=== PATIENT | female | born 1990 | race Two or more races ===

== ENCOUNTER 2018-07-15 22:22 | Emergency (ER) | payer OTHER ==
[2018-07-15 22:24] VITALS: BP 117/79
== END 2018-07-15 23:31 | disposition home or self-care (01) ==
LOC: ED 23:05
DX: S83.422A Sprain of lateral collateral ligament of left knee, initial encounter (principal); X58.XXXA Exposure to other specified factors, initial encounter; Y93.44 Activity, trampolining; Y99.8 Other external cause status; Y92.89 Other specified places as the place of occurrence of the external cause
CPT/HCPCS: 99284

== ENCOUNTER 2019-06-22 01:18 | Emergency (ER) | payer OTHER ==
[~2019-06-22] VITALS: Ht 162.6 cm; Wt 74.0 kg
--- NOTE | 2019-06-22 02:33 | NUR ---
PT SLEEPING ON STRETCHER,NAD NOTED. AT BEDSIDE. WILL CONTINUE TO MONITOR.
[2019-06-22 05:50] VITALS: BP 95/60
--- NOTE | 2019-06-22 07:07 | NUR ---
BEDSIDE REPORT RECEIVED FROM STEFANIE BOWIE. PT AND SIGNIFICANT OTHER DENY ANY NEEDS OR CONCERNS AT THIS TIME.
--- NOTE | 2019-06-22 07:29 | NUR ---
PT LIVES IN [facility]. [employer] WILL ONLY TAKE PT HALF WAY, PER [employer]. PT AND MADE AWARE, STATE THEY WILL TRY TO CALL SOMEONE.
--- NOTE | 2019-06-22 07:52 | NUR ---
PT READY FOR DISCHARGE, FATHER COMING FOR TRANSPORTATION. PT PROVIDED WITH CLOTHES FROM [place]. DENIES ANY NEEDS OR CONCERNS AT THIS TIME.
== END 2019-06-22 07:54 | disposition home or self-care (01) ==
LOC: ED 06:23
DX: F10.120 Alcohol abuse with intoxication, uncomplicated (principal)
CPT/HCPCS: 36415; 80307; 99283